=== PATIENT | male | born 1965 | race Caucasian/White ===

== ENCOUNTER 2016-09-10 18:18 | Emergency (ER) | payer OTHER ==
[~2016-09-10] VITALS: Ht 172.7 cm; Wt 71.7 kg
[2016-09-10 18:33] VITALS: BP 173/104
[2016-09-10] MEDS ORDERED: IBUPROFEN 600 MG TAB PO ONE (21:30)
[2016-09-10] MEDS ORDERED: BACLOFEN 10 MG TAB PO ONE (21:30)
== END 2016-09-10 21:40 | disposition home or self-care (01) ==
LOC: ER 18:46
DX: S16.1XXA Strain of muscle, fascia and tendon at neck level, initial encounter (principal); S46.911A Strain of unspecified muscle, fascia and tendon at shoulder and upper arm level, right arm, initial encounter; S20.211A Contusion of right front wall of thorax, initial encounter; S00.93XA Contusion of unspecified part of head, initial encounter; V49.9XXA Car occupant (driver) (passenger) injured in unspecified traffic accident, initial encounter; Y93.89 Activity, other specified; Y99.8 Other external cause status; Y92.69 Other specified industrial and construction area as the place of occurrence of the external cause
CPT/HCPCS: 70450; 71101; 72125; 73030

== ENCOUNTER 2023-06-23 17:12 | Emergency (ER) | payer MEDICAID, OTHER ==
[~2023-06-23] VITALS: Ht 172.7 cm; Wt 70.4 kg
[2023-06-23 18:16] VITALS: BP 151/90; PULSE 108; RESP 16; O2SAT 97
[2023-06-23 20:21] LABS: Anion Gap 7 (5-15); Carbon Dioxide 31 mmol/L (20-30); Chloride 104 mmol/L (98-107); Potassium 4.6 mmol/L (3.5-5.1); Sodium 142 mmol/L (136-145)
[2023-06-23 20:22] LABS: Calcium 11.2 mg/dL (8.5-10.1)
[2023-06-23 20:26] LABS: Glucose 108 mg/dL (74-106)
[2023-06-23 20:27] LABS: BUN/Creatinine Ratio 19.7 (10.0-20.0); Blood Urea Nitrogen 23 mg/dL (9-23)
== END 2023-06-23 21:10 | disposition home or self-care (01) ==
LOC: ER 17:12
DX: R79.89 Other specified abnormal findings of blood chemistry (principal); I10 Essential (primary) hypertension; E11.9 Type 2 diabetes mellitus without complications; Z98.890 Other specified postprocedural states
CPT/HCPCS: 36415; 80048

== ENCOUNTER 2023-08-06 13:44 | Emergency (ER) | payer MEDICAID ==
[~2023-08-06] VITALS: Ht 172.7 cm; Wt 71.7 kg
[2023-08-06 14:40] VITALS: BP 168/91; PULSE 104; RESP 16; O2SAT 97
[2023-08-06 15:15] LABS: Urine Bacteria None Seen /hpf (None Seen)
[2023-08-06 15:34] LABS: Hemoglobin 14.6 g/dL (13.5-17.5); Lymphocytes # (auto) 1.4 10 ^3/uL (0.4-5.4); Monocytes # (auto) 0.6 10 ^3/uL (0-1.3); Nucleated Red Blood Cells % 0.1 %
[2023-08-06 15:35] LABS: Basophils # (auto) 0 10 ^3/uL (0-0.2); Basophils % (auto) 0.8 % (0.0-2.0); Eosinophils # (auto) 0.1 10 ^3/uL (0-0.8); Eosinophils % (auto) 2.5 % (0.0-7.0); Hematocrit 45.1 % (41.0-53.0); Lymphocytes % (auto) 25.8 % (10.0-50.0); Mean Corpuscular Hemoglobin 25.2 pg (28.0-32.0); Mean Corpuscular Hgb Conc. 32.3 g/dL (32.0-36.0); Monocytes % (auto) 11.5 % (0.0-12.0); Neutrophils # (auto) 3.2 10 ^3/uL (1.6-8.6); Neutrophils % (auto) 59.4 % (37.0-80.0); Red Blood Cells 5.78 10^6/uL (4.5-5.90); White Blood Cell 5.5 10^3/uL (4.4-10.8)
[2023-08-06 15:41] LABS: Alanine Aminotransferase 19 U/L (7-40); Albumin 4.8 g/dL (3.2-4.8); Alkaline Phosphatase 71 U/L (46-116); Anion Gap 4 (5-15); Aspartate Aminotransferase 13 U/L (13-40); BUN/Creatinine Ratio 16.3 (10.0-20.0); Blood Urea Nitrogen 20 mg/dL (9-23); Calcium 11.5 mg/dL (8.7-10.4); Carbon Dioxide 29 mmol/L (20-30); Chloride 105 mmol/L (98-107); Glucose 82 mg/dL (74-106); Magnesium 1.9 mg/dL (1.6-2.6); Potassium 4.6 mmol/L (3.5-5.1); Sodium 138 mmol/L (136-145)
[2023-08-06 15:42] LABS: Bilirubin, Total 0.4 mg/dL (0.2-1.0); Total Protein 8.1 g/dL (5.7-8.2)
[2023-08-06 15:43] LABS: Lactic Acid w/Reflex 2.3 mmol/L (0.4-2.0)
[2023-08-06] MEDS: SODIUM CHLORIDE 0.9% 1,000 ML IV ONE (16:07)
[2023-08-06 16:09] LABS: Urine Blood 1+ /uL (Negative); Urine Clarity Clear (Clear); Urine Color Light-Yellow (Yellow); Urine Protein, UAD 2+ (Negative); Urine Specific Gravity 1.033 (1.001-1.035); Urine Urobilinogen Normal (Negative); Urine WBC 1 /hpf (0 - 3); Urine pH 5.5 (5.0-9.0)
== END 2023-08-06 19:14 | disposition left against medical advice (07) ==
LOC: ER 13:45
DX: R20.2 Paresthesia of skin (principal); I10 Essential (primary) hypertension; E11.9 Type 2 diabetes mellitus without complications; Z98.890 Other specified postprocedural states
CPT/HCPCS: 36415; 70450; 71045; 80053; 81001; 82962; 83605; 83735; 84484; 85025; 93005; 96360; 99285; J7030

== ENCOUNTER → 2023-12-15 | Outpatient (CLI) | payer MEDICAID ==
[~2023-12-15] MED LIST: IOHEXOL 300 MG/ML 100ML BOTTLE IJ ONE
--- NOTE | 2023-12-15 13:51 | DVH ---
XY FLUOROGUIDANCE FOR NEEDLE PLAC, HISTORY: BILATERAL LOWER EXTREMITY EDEMA COMPARISON: None PROCEDURE: Informed consent. The patient was placed on the fluoroscopic table in supine position with the bilateral lower extremity extended. Time out was performed. Via a previously placed ankle IV cat heter, sequential spot fluoroscopic images/venograms of the bilateral lower extremity were obtained d uring the injection of iodinated contrast. Then the turniquite was released and additional IV contras t was injected for additional venogram images. The procedure was then terminated and the IV removed a nd a band-aid applied. No immediate complication was identified. FLUOROSCOPY TIME: 3.7 minutes. DAP 248 CONTRAST USED: 90 mL. FINDINGS: Bilateral calf veins appear normal in size and caliber. Multiple perforating veins are visu alized from the deep to the superficial venous system. The valves appear normal. The popliteal and fe moral veins appear normal to the groin, and the valves also appear normal. No filling defects are vis ualized in the bilateral lower extremity veins. IMPRESSION: Normal bilateral lower extremity venogram. Valves visualized throughout the bilateral lower extremity veins. No filling defects in the bilateral lower extremity veins to suggest for thrombus. No significant venous collaterals are visualized.
== END | disposition home or self-care (01) ==
LOC: XYW 09:48
PROVIDERS: ATTEND Podiatrist
DX: R60.0 Localized edema (principal)
CPT/HCPCS: 36005; 75822; 77002; Q9967

== ENCOUNTER 2024-11-03 11:02 | Outpatient (CLI) | payer MEDICAID ==
[2024-11-03 11:16] LABS: Hematocrit 41.0 % (41.0-53.0); Hemoglobin 13.8 g/dL (13.5-17.5); Mean Corpuscular Hemoglobin 26.0 pg (28.0-32.0); Mean Corpuscular Volume 77.5 fL (80.0-100.0); Nucleated Red Blood Cells % 0.1 %
[2024-11-03 11:40] LABS: Alanine Aminotransferase 20 U/L (7-40); Albumin 4.6 g/dL (3.2-4.8); Alkaline Phosphatase 64 U/L (46-116); Anion Gap 8 (5-15); BUN/Creatinine Ratio 15.8 (10.0-20.0); Calcium 9.6 mg/dL (8.7-10.4); Carbon Dioxide 27 mmol/L (20-31); Chloride 102 mmol/L (98-107); Potassium 4.4 mmol/L (3.5-5.1); Sodium 137 mmol/L (136-145); Total Protein 7.8 g/dL (5.7-8.2)
[2024-11-03 11:41] LABS: Bilirubin, Total 0.6 mg/dL (0.2-1.0)
[2024-11-03 11:44] LABS: Blood Urea Nitrogen 27 mg/dL (9-23); Glucose 152 mg/dL (74-106)
== END 2024-11-03 17:00 | disposition home or self-care (01) ==
LOC: LAB 11:02
PROVIDERS: ATTEND Internal Medicine
DX: I12.9 Hypertensive chronic kidney disease with stage 1 through stage 4 chronic kidney disease, or unspecified chronic kidney disease (principal); N18.30 Chronic kidney disease, stage 3 unspecified; E78.5 Hyperlipidemia, unspecified
CPT/HCPCS: 36415; 80053; 85025

== ENCOUNTER → 2025-01-19 | Outpatient (CLI) | payer MEDICAID ==
[2025-01-19 11:42] LABS: Nucleated Red Blood Cells % 0.0 %
[2025-01-19 11:44] LABS: Hematocrit 43.0 % (41.0-53.0); Hemoglobin 14.2 g/dL (13.5-17.5); Mean Corpuscular Hemoglobin 25.6 pg (28.0-32.0); Mean Corpuscular Volume 77.2 fL (80.0-100.0)
[2025-01-19 12:19] LABS: Alanine Aminotransferase 25 U/L (7-40); Albumin 4.8 g/dL (3.2-4.8); Alkaline Phosphatase 73 U/L (46-116); Anion Gap 9 (5-15); BUN/Creatinine Ratio 15.4 (10.0-20.0); Carbon Dioxide 29 mmol/L (20-31); Chloride 103 mmol/L (98-107); HDL Cholesterol 40 mg/dL (40-59); Magnesium 2.2 mg/dL (1.6-2.6); Sodium 141 mmol/L (136-145); Total Protein 8.2 g/dL (5.7-8.2)
[2025-01-19 12:20] LABS: Bilirubin, Total 0.6 mg/dL (0.2-1.0)
[2025-01-19 12:23] LABS: Blood Urea Nitrogen 26 mg/dL (9-23); Calcium 10.6 mg/dL (8.7-10.4); Cholesterol 290 mg/dL (< 200); Glucose 136 mg/dL (74-106); Potassium 5.1 mmol/L (3.5-5.1); Triglycerides 203 mg/dL (< 150)
[2025-01-19 12:24] LABS: Protein, Urine 274.2 mg/dL (1-14)
[2025-01-19 12:41] LABS: Uric Acid 7.5 mg/dL (3.7-9.2)
== END | disposition home or self-care (01) ==
LOC: LAB 11:22
PROVIDERS: ATTEND Internal Medicine
DX: E11.22 Type 2 diabetes mellitus with diabetic chronic kidney disease (principal); N18.30 Chronic kidney disease, stage 3 unspecified; N39.0 Urinary tract infection, site not specified; R80.9 Proteinuria, unspecified; E21.3 Hyperparathyroidism, unspecified; E11.21 Type 2 diabetes mellitus with diabetic nephropathy; M10.9 Gout, unspecified; E55.9 Vitamin D deficiency, unspecified; D63.1 Anemia in chronic kidney disease
CPT/HCPCS: 36415; 80053; 80061; 82306; 82570; 83036; 83735; 83970; 84156; 84550; 85025